=== PATIENT | female | born 1975 | race Caucasian/White ===

== ENCOUNTER 2020-12-28 23:33 | Inpatient (IN) | payer OTHER ==
[~2020-12-28] VITALS: Ht 170.2 cm; Wt 115.8 kg
[2020-12-29 00:36] LABS: BASOPHILS ABSOLUTE AUTO 0.05 K/mm3 (0.00-0.23); BASOPHILS PERCENT AUTO 1 % (0-2); Hematocrit 40.1 % (33.0-51.0); Hemoglobin 12.9 g/dL (11.5-16.0); LYMPHOCYTES ABSOLUTE AUTO 1.37 K/mm3 (0.84-5.20); LYMPHOCYTES PERCENT AUTO 18 % (21-46); MONOCYTES ABSOLUTE AUTO 0.73 K/mm3 (0.16-1.47); MONOCYTES PERCENT AUTO 10 % (4-13); Mean Corpuscular HGB 28.9 pg (26.0-34.0); Mean Corpuscular HGB Conc 32.2 g/dL (31.5-36.5); Mean Corpuscular Volume 90 fL (80-100); Platelet Count 210 K/mm3 (150-400); RDW Coefficient Variation 13.6 % (11.7-14.2); Red Blood Cell Count 4.47 M/mm3 (3.80-5.20); White Blood Cell Count 7.72 K/mm3 (4.00-11.30)
[2020-12-29 00:37] LABS: EOSINOPHILS ABSOLUTE AUTO 0.13 K/mm3 (0.00-0.68); EOSINOPHILS PERCENT AUTO 2 % (0-6); IMMATURE GRAN ABSOLUTE AUTO 0.04 K/mm3 (0.00-0.10); IMMATURE GRAN PERCENT AUTO 1 % (0-1); NEUTROPHILS PERCENT AUTO 70 % (41-73)
[2020-12-29 00:57] LABS: Alanine Aminotransfer (ALT/SGP 110 U/L (12-78); Albumin, Blood 2.2 g/dL (3.4-5.0); Albumin/Globulin Ratio 0.5 (0.8-1.8); Alk Phos 87 U/L (50-136); Anion Gap 6 mmol/L (6-16); Aspartate Aminotrans (AST/SGOT 89 U/L (12-37); Bilirubin, Total 0.4 mg/dL (0.1-1.0); Blood Urea Nitrogen 9 mg/dL (8-24); Bun/Creatinine Ratio 11.2 (12.0-20.0); CO2, Blood 23 mmol/L (21-32); Calcium, Blood 8.7 mg/dL (8.5-10.1); Chloride, Blood 104 mmol/L (98-108); Creatinine, Blood 0.81 mg/dL (0.40-1.00); Globulin, Blood 4.5 g/dL (2.2-4.0); Glomerular Filtration Rate >60 (60-); Glucose, Blood 124 mg/dL (70-99); Potassium, Blood 3.8 mmol/L (3.5-5.5); Sodium, Blood 133 mmol/L (136-145); Total Protein, Blood 6.7 g/dL (6.4-8.2)
[2020-12-29 03:49] LABS: U Amphetamine Screen DETECTED; U Barbituate Screen Not Detected; U Benzodiazapine Screen Not Detected; U Buprenorphine Screen Not Detected; U Cannabinoids Screen DETECTED; U Cocaine Screen Not Detected; U Methadone Screen Not Detected; U Methamphetamine Screen DETECTED; U Opiates Screen DETECTED; U Oxycodone Screen Not Detected; U Phencyclidine Screen Not Detected; U Propoxyphene Screen Not Detected
--- NOTE | 2020-12-29 05:51 | NUR ---
SHIFT SUMMARY: JUVE WAS ADMITTED LAST NIGHT FOR RLE CELLULITIS. SHE WAS IN [facility] BUT DID NOT FEEL SHE WAS GETTING THE PROPER TREATMENT AND WENT AMA. ARRIVED TO THE FLOOR GRUMPY BUT ABLE TO MOVE TO BED INDEPENDENTLY. VERY OUT OF IT SLEEPING THROUGH ASSESSMENT AND HAD TO KEEP WAKING HER UP TO GET ANSWERS WHICH WAS NOT VERY CLEAR. RLE ANGRY RED FROM HER TOES UP TO HER KNEE, OUTLINED WITH MARKER. STATES TO PAINFUL TO EVEN PUT HER LEG DOWN. THERE IS A SMALL OPEN AREA ON THE POSTERIOR OF HER ANKLE BUT WAS UNABLE TO GET A CLEAR ANSWER TO WHAT HAD HAPPENED. UA DID COME BACK POSITIVE FOR OPIODS, METH AND MARIJUANA. IVF STARTED BUT WHEN SHE WENT TO CT IV SITE INFILTRATED. NEW IV IS BEING STARTED AT THIS TIME IN ORDER TO GIVE PAIN MEDS AND ADMINISTER ANIBOTICS. PATIENT STILL VERY OUT OF IT CONTINUES TO FALL ASLEEP DURING TREATMENT AND CONVERSATIONS. CALL LIGHT IN REACH. WILL CONTINUE TO MONITOR.
--- NOTE | 2020-12-29 06:43 | NUR ---
CHARGE DID SEVERAL ATTEMPTS AT IV START WITH NO SUCCESS. POWERGLIDE PLACED IN THE LEFT UPPER ARM. AFTERWARDS THE PATIENT REFUSED FENTANYL I WAS UNABLE TO GIVE IT BECAUSE THE IV WAS INFILTRATED BEFORE. CHARGE SAW WASTE. IVF STARTED.
[2020-12-29 07:06] LABS: BASOPHILS ABSOLUTE AUTO 0.03 K/mm3 (0.00-0.23); BASOPHILS PERCENT AUTO 0 % (0-2); EOSINOPHILS ABSOLUTE AUTO 0.12 K/mm3 (0.00-0.68); EOSINOPHILS PERCENT AUTO 2 % (0-6); Hematocrit 38.4 % (33.0-51.0); IMMATURE GRAN ABSOLUTE AUTO 0.05 K/mm3 (0.00-0.10); IMMATURE GRAN PERCENT AUTO 1 % (0-1); LYMPHOCYTES ABSOLUTE AUTO 1.25 K/mm3 (0.84-5.20); LYMPHOCYTES PERCENT AUTO 16 % (21-46); MONOCYTES ABSOLUTE AUTO 0.85 K/mm3 (0.16-1.47); MONOCYTES PERCENT AUTO 11 % (4-13); Mean Corpuscular HGB 29.4 pg (26.0-34.0); Mean Corpuscular HGB Conc 33.9 g/dL (31.5-36.5); Mean Corpuscular Volume 87 fL (80-100); Mean Platelet Volume 10.1 fL (9.1-12.4); NEUTROPHILS PERCENT AUTO 71 % (41-73); Platelet Count 220 K/mm3 (150-400); RDW Coefficient Variation 13.8 % (11.7-14.2); RDW Standard Deviation 44.1 fL (35.1-46.3); Red Blood Cell Count 4.42 M/mm3 (3.80-5.20)
[2020-12-29 07:23] LABS: Alanine Aminotransfer (ALT/SGP 100 U/L (12-78); Albumin, Blood 2.2 g/dL (3.4-5.0); Albumin/Globulin Ratio 0.5 (0.8-1.8); Alk Phos 81 U/L (50-136); Anion Gap 7 mmol/L (6-16); Aspartate Aminotrans (AST/SGOT 69 U/L (12-37); Bilirubin, Total 0.4 mg/dL (0.1-1.0); Blood Urea Nitrogen 9 mg/dL (8-24); CO2, Blood 25 mmol/L (21-32); CPK Creatine Kinase 39 U/L (26-193); Calcium, Blood 8.9 mg/dL (8.5-10.1); Chloride, Blood 105 mmol/L (98-108); Creatinine, Blood 0.75 mg/dL (0.40-1.00); Globulin, Blood 4.5 g/dL (2.2-4.0); Glomerular Filtration Rate >60 (60-); Glucose, Blood 120 mg/dL (70-99); Potassium, Blood 3.8 mmol/L (3.5-5.5); Sodium, Blood 137 mmol/L (136-145); Total Protein, Blood 6.7 g/dL (6.4-8.2)
--- NOTE | 2020-12-29 07:33 | NUR ---
Bedside report rec'd from DOMENICO Yoo . The pt is lethargic, wakens to verbal/tactile stimuli when blood draw done and is irritable. C/o pain in leg and back at this time, requesting pain medication but refusing fentanyl because "it is too strong." Given her lethargy, questionable safety with any narcotic administration at this time any way. Only prn orders for pain med are tylenol and fentanyl at this time.She appears to quickly go back to sleep.
--- NOTE | 2020-12-29 07:43 | NUR ---
crying on phone with her mom, still refusing pain medication. States it will make her sick.
--- NOTE | 2020-12-29 12:48 | NUR ---
COOL PAD APPLIED TO RIGHT LEG FOR RELIEF OF PAIN. LEG IS ELEVATED ON 2-3 PILLOWS FOR RELIEF AND TO AID IN REDUCING SWELLING. PT IS C/O PAIN 10/10 WHILE EATING LUNCH.
--- NOTE | 2020-12-29 14:12 | NUR ---
Pt appears to be sleeping soundly. Respirations are even, unlabored, she is lying on her left side. Cool application to her right leg was short-lived; pt stated that it was too cool.
--- NOTE | 2020-12-29 15:09 | NUR ---
The pt is wide awake, and has been complaining of severe pain in her right leg. Called Dr. Caballero, new orders received for pain medication.
--- NOTE | 2020-12-29 18:08 | NUR ---
Sleeping since administration of oxycodone; awakened easily at time of administration of ketorolac, stated that she didn't need anything else for pain because she was doing fine. STates that she hesitates to take narcotics because she used to be hooked on pain pills and she doesn't want to be anymore.
--- NOTE | 2020-12-29 20:50 | NUR ---
ASSUMPTION OF CARE. STILL VERY OUT OF IT, SLEEPING ALL THE TIME. WAKES TO VERBAL STIMULI. ASKED FOR DINNER TRAY, GAVE IT TO HER. STATES PAIN 8/10 IN RLE. NO CHANGES TO RLE STILL ANGRY RED, NO EDEMA, SHINNY SWOLLEN, NO DECREASE IN REDNESS. LEG ELEVATED ON PILLOWS. IVF INFUSING AT 75ML/HR TO POWERGLIDE. WILL CONTINUE TO MONITOR, CALL LIGHT IN REACH.
[2020-12-30 05:10] LABS: BASOPHILS ABSOLUTE AUTO 0.03 K/mm3 (0.00-0.23); BASOPHILS PERCENT AUTO 0 % (0-2); EOSINOPHILS ABSOLUTE AUTO 0.15 K/mm3 (0.00-0.68); EOSINOPHILS PERCENT AUTO 2 % (0-6); Hematocrit 36.7 % (33.0-51.0); Hemoglobin 12.3 g/dL (11.5-16.0); IMMATURE GRAN ABSOLUTE AUTO 0.07 K/mm3 (0.00-0.10); IMMATURE GRAN PERCENT AUTO 1 % (0-1); LYMPHOCYTES ABSOLUTE AUTO 2.08 K/mm3 (0.84-5.20); LYMPHOCYTES PERCENT AUTO 28 % (21-46); MONOCYTES ABSOLUTE AUTO 0.74 K/mm3 (0.16-1.47); MONOCYTES PERCENT AUTO 10 % (4-13); Mean Corpuscular HGB Conc 33.5 g/dL (31.5-36.5); Mean Corpuscular Volume 87 fL (80-100); NEUTROPHILS ABSOLUTE AUTO 4.28 K/mm3 (1.96-9.15); NEUTROPHILS PERCENT AUTO 58 % (41-73); Platelet Count 251 K/mm3 (150-400); RDW Coefficient Variation 14.1 % (11.7-14.2); RDW Standard Deviation 44.7 fL (35.1-46.3); Red Blood Cell Count 4.24 M/mm3 (3.80-5.20); White Blood Cell Count 7.35 K/mm3 (4.00-11.30)
[2020-12-30 05:19] LABS: Alanine Aminotransfer (ALT/SGP 78 U/L (12-78); Albumin/Globulin Ratio 0.5 (0.8-1.8); Alk Phos 72 U/L (50-136); Anion Gap 5 mmol/L (6-16); Aspartate Aminotrans (AST/SGOT 28 U/L (12-37); Bilirubin, Total 0.2 mg/dL (0.1-1.0); Blood Urea Nitrogen 13 mg/dL (8-24); Bun/Creatinine Ratio 16.6 (12.0-20.0); CO2, Blood 26 mmol/L (21-32); Calcium, Blood 8.3 mg/dL (8.5-10.1); Chloride, Blood 107 mmol/L (98-108); Creatinine, Blood 0.79 mg/dL (0.40-1.00); Globulin, Blood 4.3 g/dL (2.2-4.0); Glomerular Filtration Rate >60 (60-); Glucose, Blood 109 mg/dL (70-99); Magnesium, Blood 2.1 mg/dL (1.6-2.4); Sodium, Blood 138 mmol/L (136-145); Total Protein, Blood 6.3 g/dL (6.4-8.2)
[2020-12-30 05:26] LABS: Vancomycin, Trough 9.3 ug/mL (5.0-10.0)
--- NOTE | 2020-12-30 05:39 | NUR ---
SHIFT SUMMARY: MORE AWAKE THIS SHIFT THEN PREVIOUS NIGHT. ATE DINNER AND WAS ON HER PHONE FOR A WHILE THEN FELL TO SLEEP. PAIN MED WAS GIVEN X2 AND WILL MEDICATED BEFORE SHIFT IS OVER. STILL NOT WANTING TO PUT HER FOOT DOWN DUE TO INCREASE IN PAIN. SWELLING HAS GONE DOWN SOME AND REDNESS HAS DECREASED BY THREE QUARTERS OF AN INCH BELOW THE MARKED AREA. COLOR IS ALSO GETTING BLOWER INSTALLER. STATES SHE FEELS LIKE SHE CAN MOVE HER TOES A LITTLE EASIER. SHE DOES WELL TO KEEP HER FOOT ELEVATED ON PILLOWS. VSS/AFEBRILE. CALL LIGHT IS IN REACH.
--- NOTE | 2020-12-30 16:54 | NUR ---
SHIFT SUMMARY PATIENT MEDICATED FOR PAIN X2. DENIES NAUSEA AND SHORTNESS OF BREATH. DRESSING APPLIED TO RIGHT LOWER LEG DUE TO WEEPING EDEMA. POWERGLIDE DRESSING CHANGED. PATIENT DECLINES TO GET OUT OF BED DUE TO PAIN IN RLE. BEDPAN USED PER PATIENT REQUEST. EATING AND DRINKING WELL. PLEASANT AND COOPERATIVE WITH CARE.
--- NOTE | 2020-12-30 21:56 | NUR ---
ASSUMPTION OF CARE. PLEASANT AND COOPERATIVE. USED BED CLARK. UN-WRAPPED LEG SHE FELT IT WAS MAKING HOTTER. DECREASE IN REDNESS TO MID CALF. SWELLING DOWN TO 2 SKIN IS GETTING WRINKLES AND IS VERY THIN. ENCOURAGED TO PREVENT RUBBING. NO N/T. MEDICATED FOR PAIN. WILL CONTINUE TO MONITOR. CALL LIGHT IN REACH.
--- NOTE | 2020-12-31 06:33 | NUR ---
SHIFT SUMMARY: RLE DECREASE IN REDNESS. THERE IS A LARGE AREA ON THE POSTERIOR MEDIAL SIDE OF THE CALF WHERE THE TISSUES APPEARS TO BE SIMILAR TO HEMATOMA WITH THE CENTER SKIN VERY THIN LIKE A BLISTER DID FORM AND IS RESOLVING. ON THE LATERAL UP TOWARDS KNEE THERE IS A SIMILAR AREA WITH SOME RAISED AREAS POSSIBLY BLISTERS. PAIN AVERAGE 7/10. DECREASE IN SWELLING, WRINKLES IN TISSUE. ANTIBOTICS INFUSING WELL. VSS/AFEBRILE. CALL LIGHT IN REACH.
--- NOTE | 2020-12-31 16:19 | NUR ---
SHIFT SUMMARY PATIENT MEDICATED FOR PAIN X2. PATIENT DENIES NAUSEA AND VOMITING. PATIENT UP TO BSC ONCE TODAY WITH SBA. BANDAGE ON CALF IS CLEAN, DRY, AND INTACT. EATING AND DRINKING WELL. PLEASANT AND COOPERATIVE WITH CARE.
[2021-01-01 06:08] LABS: BASOPHILS ABSOLUTE AUTO 0.06 K/mm3 (0.00-0.23); BASOPHILS PERCENT AUTO 1 % (0-2); EOSINOPHILS ABSOLUTE AUTO 0.18 K/mm3 (0.00-0.68); EOSINOPHILS PERCENT AUTO 2 % (0-6); Hemoglobin 13.2 g/dL (11.5-16.0); IMMATURE GRAN ABSOLUTE AUTO 0.22 K/mm3 (0.00-0.10); IMMATURE GRAN PERCENT AUTO 2 % (0-1); LYMPHOCYTES ABSOLUTE AUTO 2.77 K/mm3 (0.84-5.20); LYMPHOCYTES PERCENT AUTO 31 % (21-46); MONOCYTES ABSOLUTE AUTO 0.63 K/mm3 (0.16-1.47); MONOCYTES PERCENT AUTO 7 % (4-13); Mean Corpuscular HGB 28.7 pg (26.0-34.0); Mean Corpuscular Volume 87 fL (80-100); Mean Platelet Volume 9.8 fL (9.1-12.4); NEUTROPHILS ABSOLUTE AUTO 5.23 K/mm3 (1.96-9.15); NEUTROPHILS PERCENT AUTO 58 % (41-73); Platelet Count 343 K/mm3 (150-400); RDW Coefficient Variation 13.8 % (11.7-14.2); RDW Standard Deviation 44.4 fL (35.1-46.3); White Blood Cell Count 9.09 K/mm3 (4.00-11.30)
--- NOTE | 2021-01-01 06:12 | NUR ---
SHIFT SUMMARY: VSS/AFEBRILE. SLEPT THE ENTIRE SHIFT, WOULD MOAN WHEN SPOKEN TO BUT WOULD NOT WAKE UP. SHE WOULD ALLOW HER ANTIBOTICS TO HUNG. NEVER WOKE UP TO USE THE BATHROOM TILL THIS AM. SHE GOT UP TO BSC. RLE STILL IMPROVING. THERE IS LARGE HEMOTOMA LIKE AREA WITH BLISTER IN THE CENTER ON THE POSTERIOR OF THE CALF, SKIN IS STILL INTAKE. NO PAIN MEDS GIVEN OTHER THEN TORDOL. STILL NO BM TO NOTE. CALL LIGHT IS IN REACH. AM ANTIBOTIC INFUSING.
[2021-01-01 06:24] LABS: Alanine Aminotransfer (ALT/SGP 53 U/L (12-78); Albumin, Blood 2.2 g/dL (3.4-5.0); Albumin/Globulin Ratio 0.4 (0.8-1.8); Alk Phos 71 U/L (50-136); Anion Gap 4 mmol/L (6-16); Aspartate Aminotrans (AST/SGOT 27 U/L (12-37); Bilirubin, Total 0.2 mg/dL (0.1-1.0); Blood Urea Nitrogen 16 mg/dL (8-24); Bun/Creatinine Ratio 19.7 (12.0-20.0); CO2, Blood 27 mmol/L (21-32); Calcium, Blood 8.8 mg/dL (8.5-10.1); Chloride, Blood 105 mmol/L (98-108); Creatinine, Blood 0.81 mg/dL (0.40-1.00); Globulin, Blood 4.9 g/dL (2.2-4.0); Glomerular Filtration Rate >60 (60-); Glucose, Blood 111 mg/dL (70-99); Potassium, Blood 4.3 mmol/L (3.5-5.5); Sodium, Blood 136 mmol/L (136-145); Total Protein, Blood 7.1 g/dL (6.4-8.2)
--- NOTE | 2021-01-01 16:45 | NUR ---
PT HAS BEEN QUITE PLEASNT TODAY. PAIN MANAGED WITH AVAIL MEDS. PT STATES LEG SLIGHTLY LARGER THAN YEST. REDNESS IS STILL DECREASING FROM LINES DRAWN ON LEG. IV ANTIBIOTICS ORDERED. NO NEW CONCERNS NOTED TODAY. BED IN LOW POSITION, CALL LITE IN REACH, CALLS APPROP
--- NOTE | 2021-01-01 22:00 | NUR ---
ASSUMPTION OF CARE. RLE DOING BETTER, REDNESS CONTINUES TO DECREASE. HEMATOMA AREA ON POSTERIOR LEG BLISTER OPENED UP. DRESSING CDI. SWELLING STILL DOWN. PAIN 02/20. ADMINISTERED PAIN MEDS. NO OTHER CHANGES TODAY. CALL LIGHT IN REACH.
--- NOTE | 2021-01-02 04:49 | NUR ---
SHIFT SUMMARY: AOX3, SLEPT MOST OF SHIFT. ONLY 1 PAIN MED GIVEN. DRESSING TO RLE INTACT AND CLEAN. REDNESS DECREASING, SWELLING +1 NON-PITTING. SKIN THIN AND WRINKLED. TENDER TO TOUCH. VSS/AFEBRILE. NO OTHER CHANGES TO NOTE. CALL LIGHT IS IN REACH AND USED APPROPRIATLY.
[2021-01-02 05:48] LABS: BASOPHILS ABSOLUTE AUTO 0.06 K/mm3 (0.00-0.23); BASOPHILS PERCENT AUTO 1 % (0-2); EOSINOPHILS ABSOLUTE AUTO 0.17 K/mm3 (0.00-0.68); EOSINOPHILS PERCENT AUTO 2 % (0-6); Hematocrit 38.7 % (33.0-51.0); Hemoglobin 12.8 g/dL (11.5-16.0); IMMATURE GRAN ABSOLUTE AUTO 0.26 K/mm3 (0.00-0.10); IMMATURE GRAN PERCENT AUTO 3 % (0-1); LYMPHOCYTES ABSOLUTE AUTO 2.79 K/mm3 (0.84-5.20); LYMPHOCYTES PERCENT AUTO 28 % (21-46); MONOCYTES ABSOLUTE AUTO 0.65 K/mm3 (0.16-1.47); MONOCYTES PERCENT AUTO 7 % (4-13); Mean Corpuscular HGB 28.4 pg (26.0-34.0); Mean Corpuscular HGB Conc 33.1 g/dL (31.5-36.5); Mean Corpuscular Volume 86 fL (80-100); Mean Platelet Volume 9.6 fL (9.1-12.4); NEUTROPHILS ABSOLUTE AUTO 6.11 K/mm3 (1.96-9.15); NEUTROPHILS PERCENT AUTO 61 % (41-73); Platelet Count 376 K/mm3 (150-400); RDW Coefficient Variation 13.5 % (11.7-14.2); RDW Standard Deviation 42.5 fL (35.1-46.3); White Blood Cell Count 10.04 K/mm3 (4.00-11.30)
[2021-01-02 06:17] LABS: Alanine Aminotransfer (ALT/SGP 43 U/L (12-78); Albumin, Blood 2.2 g/dL (3.4-5.0); Albumin/Globulin Ratio 0.5 (0.8-1.8); Alk Phos 64 U/L (50-136); Anion Gap 5 mmol/L (6-16); Aspartate Aminotrans (AST/SGOT 17 U/L (12-37); Bilirubin, Total 0.2 mg/dL (0.1-1.0); Blood Urea Nitrogen 15 mg/dL (8-24); Bun/Creatinine Ratio 17.9 (12.0-20.0); CO2, Blood 26 mmol/L (21-32); Calcium, Blood 8.6 mg/dL (8.5-10.1); Chloride, Blood 106 mmol/L (98-108); Creatinine, Blood 0.84 mg/dL (0.40-1.00); Globulin, Blood 4.6 g/dL (2.2-4.0); Glomerular Filtration Rate >60 (60-); Glucose, Blood 97 mg/dL (70-99); Potassium, Blood 4.1 mmol/L (3.5-5.5); Sodium, Blood 137 mmol/L (136-145); Total Protein, Blood 6.8 g/dL (6.4-8.2)
--- NOTE | 2021-01-02 18:19 | NUR ---
PT DOING WELL TODAY. STATES THINKS LEG MAYBE SOME WORSE TONITE. LITTLE MORE PAIN TONITE. MEDICATED. DID REQUEST TO HAVE LOW/NO SALT DIET. NO NEW CONCRNS NOTED TODAY. BED IN LOW POSITION, CALL LITE IN REACH, CALLS APPROP
--- NOTE | 2021-01-02 18:42 | NUR ---
BP 162/86 PT STATES FAMILY DRAMA ON PHONE. WILL WILL BE OKAY.
[2021-01-03 05:38] LABS: Anion Gap 5 mmol/L (6-16); Blood Urea Nitrogen 11 mg/dL (8-24); Bun/Creatinine Ratio 13.1 (12.0-20.0); CO2, Blood 26 mmol/L (21-32); Calcium, Blood 8.7 mg/dL (8.5-10.1); Chloride, Blood 106 mmol/L (98-108); Creatinine, Blood 0.84 mg/dL (0.40-1.00); Glomerular Filtration Rate >60 (60-); Glucose, Blood 103 mg/dL (70-99); Potassium, Blood 4.2 mmol/L (3.5-5.5); Sodium, Blood 137 mmol/L (136-145)
--- NOTE | 2021-01-03 06:39 | NUR ---
SHIFT SUMMARY: JUVE IS A&OX4. VSS, NO ACUTE EVENTS OVERNIGHT. SHE IS A ONE PERSON STANDBY ASSIST TO THE BATHROOM, GOOD URINE OUTPUT. SHE REPORTS ADEQUATE PAIN CONTROL WITH THE TORADOL AND OXY. SHE USES THE CALL LIGHT APPROPRIATELY. SHE IS TOLERATING PO INTAKE WELL. SHE REPORTS THAT THE SWELLING IN HER RIGHT FOOT IS "GONE", STATING THAT IT IS SO MUCH SMALLER THAN USUAL SHE FEELS THAT IT IS BACK TO NORMAL, ALTHOUGH THERE CONTINUES TO BE EDEMA. POWERGLIDE PATENT. SHE IS LYING IN BED WITH THE CALL LIGHT IN REACH. WILL REPORT TO DAY SHIFT RN.
--- NOTE | 2021-01-03 18:23 | NUR ---
SHIFT SUMMARY JUVE COMPLAINED OF MILD PAIN FOR WHICH TYLENOL WORKED WELL. WALKED AROUND THE HALLWAY WITH SBA. INDEP IN ROOM TO BATHROOM. LLE ELEVATED ON PILLOWS WHEN PT IN BED. DAUGHTER VISITED. CALL LIGHT IN REACH, [facility]
--- NOTE | 2021-01-04 05:11 | NUR ---
SHIFT SUMMARY: NO ACUTE CHANGES, VSS, PAIN WELL CONTROLED WITH PRN MEDS PER OCT. VOIDING CLEAR YELLOW URINE. NO BLOOD DRAW FROM [employer].
--- NOTE | 2021-01-04 12:43 | NUR ---
PATIENT IS ALERT AND ORIENTED AND COOPERATIVE WITH CARE. MEDICATED PER EMAR FOR PAIN DURING CLUB ATTENDANT, NO C/O PAIN THIS SHIFT. PATIENT IS INDEPENDENT IN HER ROOM. SHE WALKED IN THE HALLS WITH A FWW INDEPENDENTLY. VSS. WILL CONTINUE TO MONITOR
--- NOTE | 2021-01-04 17:31 | NUR ---
PATIENT IS ALERT AND ORIENTED AND COOPERATIVE WITH CARE. PATIENT SHOWERED THIS AFTERNOON. DRESSING CHANGED NEEDED TODAY. PATIENT TOOK A WALK IN THE HALLWAY THIS MORNING. SHE MAKES HER NEEDS KNOWN. WILL CONTINUE TO MONITOR
--- NOTE | 2021-01-05 00:05 | NUR ---
REPORT RECIEVED FROM MAGGIE MYERS AND ASSUMED CARE OF PT AT THIS TIME. THIS RN AGREES TO MAGGIE'S ASSESSMENT FINDINGS.
--- NOTE | 2021-01-05 00:20 | NUR ---
TRANSFER OF CARE: @ 2523 PATIENT REQUESTED A DIFFERENT NURSE. " I DON'T FEEL SAFE WITH YOU TAKING CARE OF ME". PATIENT BECAME AGREE AND PARANOID AFTER POWER GLIDE WAS FLUSHED AND BLOOD RETURN CHECKED. "YOU ARE THE FIRST NURSE WHO HAS FLUSHE THAT IV". SOFTWARE ENGINEERING ASSOCIATE MANAGER TOOK CARE OF PATIENT THE PREVIOUS NIGHT AND POWER GLIDE WAS FLUSHED MULTIPLE TIMES TO ADMINITER IV ANTIBIOTICS. CHARGE NURSE SAGE RODRIGUEZ RN IS CALLED TO THE ROOM TO SPEAK WITH PATIENT ABOUT HER CONCERNS. REPORT IS GIVEN TO NEW RN AND CARE OF PATIENT IS TRANSFERED.
--- NOTE | 2021-01-05 06:18 | NUR ---
SUMMARY: PT A/OX4, INDEPENDENT IN ROOM AND CALLS APPROPRIATELY TO SPECIFY NEEDS. SHE IS MOSTLY PLEASANT AND COOPERATIVE W/CARE BUT THIS RN ASSUMED CARE MIDWAY THROUGH SHIFT UPON PT'S REQUEST TO HAVE NEW NURSE. PT OBSERVED TO HAVE CONCRETE, PARANOID AND CONTANKEROUS THINKING AT TIMES. JEANINE WRAP REMAINS INTACT TO RLE AND PT UNWRAPPED IT AD ALICIA TO APPLY LOTION. LYMPHODEMA PERSISTS TO RLE W/OPEN BLISTER COVERED W/NONADHERENT DX. SWELLING AND DISCOLORATION OBSERVED TO BLE'S THOUGH RLE IS WORSE. KANE PG SL BETWEEN ABX. NO ACUTE CHANGES, VSS AND AFEBRILE. WCTM AND REPORT TO DAY RN.
[2021-01-05 06:28] LABS: Hemoglobin 13.8 g/dL (11.5-16.0); Mean Corpuscular HGB 28.9 pg (26.0-34.0); Mean Corpuscular HGB Conc 32.9 g/dL (31.5-36.5); Mean Corpuscular Volume 88 fL (80-100); Mean Platelet Volume 9.3 fL (9.1-12.4); Platelet Count 412 K/mm3 (150-400); RDW Coefficient Variation 13.3 % (11.7-14.2); RDW Standard Deviation 43.1 fL (35.1-46.3); Red Blood Cell Count 4.77 M/mm3 (3.80-5.20); White Blood Cell Count 6.74 K/mm3 (4.00-11.30)
[2021-01-05 06:44] LABS: Anion Gap 5 mmol/L (6-16); Blood Urea Nitrogen 10 mg/dL (8-24); Bun/Creatinine Ratio 11.4 (12.0-20.0); CO2, Blood 25 mmol/L (21-32); Calcium, Blood 8.6 mg/dL (8.5-10.1); Chloride, Blood 106 mmol/L (98-108); Creatinine, Blood 0.88 mg/dL (0.40-1.00); Glomerular Filtration Rate >60 (60-); Glucose, Blood 160 mg/dL (70-99); Potassium, Blood 3.7 mmol/L (3.5-5.5); Sodium, Blood 136 mmol/L (136-145)
--- NOTE | 2021-01-05 17:07 | NUR ---
PT AOX4 AND COOPERATIVE OF CARE. PT INDEPENDENT TO RESTROOM AND CALL APPROPRIATELY. PT DENIES PAIN AT THIS TIME. REWRAPPED L LEG WITH JEANNIE BANDAGE. CALL LIGHT IS WITHIN REACH WILL CONTINUE TO MONITOR. NO DISTRESS NOTED.
--- NOTE | 2021-01-05 18:29 | NUR ---
PT GAVE THIS STUDENT NURSE PERMISSION TO PROVIDE CARE ON 01/05/21.
--- NOTE | 2021-01-06 04:12 | NUR ---
SHIFT SUMMARY PT PLEASANT&COOPERATIVE TO CARE T/O THIS SHIFT. TALKATIVE; DISCOLOSED CHILDHOOD TRAUMA & INNEFECTIVE COPING SKILLS (CUTTING @ AGE 15). PT SHOWERED INDEPENDENTLY. WOUND TO R CALF REDRESSED AFTER SHOWER WITH NON-ADHERENT DRESSING & GAUZE. PT WALKED INDEPENDENTLY IN HALLWAY IN THE NIGHT PROBABLE D/C HOME TOMORROW PER PROVIDER. NO ACUTE CHANGES THIS SHIFT. BED IN LOWET POSTIION & CALL LIGHT WITHIN REACH. WILL CONTINUE TO MONITOR.
--- NOTE | 2021-01-06 05:52 | NUR ---
PT REPORTS STARTING HER MENSES.
[2021-01-06] MEDS ORDERED: IBUP600 PO (09:27)
[2021-01-06] MEDS ORDERED: CEPH500 PO (09:27)
--- NOTE | 2021-01-06 14:13 | NUR ---
PT DISCHARGED AT 1215 VIA WHEELCHAIR. ALL PAPERWORK WAS REVIEWED AND EDUCATIONAL MATERIAL SENT WITH PT. PT HAD 1200 ANTIBOTIC GIVEN EARLIER TO BE ABLE TO DISCHARGE SOONER PER DR ESCALERA. NO DISTRESS NOTED AND PT DENIED PAIN. WOUND ON L LEG REWRAPPED PRIOR TO DISCHARGE. PT ESCORTED OUT BY VOLUNTEER IN WHEELCHAIR. ALL PERSONAL BELONGINGS COLLECTED AND TAKEN WITH PT.
--- NOTE | 2021-01-06 19:29 | NUR ---
LATE ENTRY 01/06/21 6817 I AGREE WITH ASSESSMENTS AND CHARTING OF STUDENT RN, ABHIJIT MARIE
== END 2021-01-06 12:12 | disposition home or self-care (01) | DRG 603 ==
LOC: ER 23:33 → MEDS 12-29 01:50
PROVIDERS: Internal Medicine; Student in an Organized Health Care Education/Training Program; ADMIT Internal Medicine
DX: L03.115 Cellulitis of right lower limb (principal); I87.8 Other specified disorders of veins; L03.116 Cellulitis of left lower limb; F15.10 Other stimulant abuse, uncomplicated; Z88.1 Allergy status to other antibiotic agents; Z88.5 Allergy status to narcotic agent; Z88.8 Allergy status to other drugs, medicaments and biological substances; I89.0 Lymphedema, not elsewhere classified; J45.909 Unspecified asthma, uncomplicated; G62.9 Polyneuropathy, unspecified; Z98.51 Tubal ligation status; Z98.890 Other specified postprocedural states; Z79.899 Other long term (current) drug therapy
CPT/HCPCS: 36415; 73701; 80048; 80053; 80202; 82550; 83605; 83735; 85025; 85027; 85651; 87040; 99284; A9270; J0295; J1650; J1885; J3010; J3370; J7030; J7040; J7050; Q9967

== ENCOUNTER 2021-10-22 16:14 | Emergency (ER) | payer OTHER ==
[~2021-10-22] VITALS: Ht 167.6 cm; Wt 113.4 kg
[~2021-10-22 16:14] MED LIST: CEPH500 PO; IBUP600 PO
== END 2021-10-22 17:00 | disposition home or self-care (01) ==
LOC: ER 16:14
DX: I89.0 Lymphedema, not elsewhere classified (principal); J45.909 Unspecified asthma, uncomplicated; G62.9 Polyneuropathy, unspecified; Z88.5 Allergy status to narcotic agent; Z88.1 Allergy status to other antibiotic agents; Z88.8 Allergy status to other drugs, medicaments and biological substances; Z79.899 Other long term (current) drug therapy
CPT/HCPCS: 10160; 99282-25

== ENCOUNTER 2021-10-28 21:17 | Inpatient (IN) | payer OTHER ==
[~2021-10-28] VITALS: Ht 170.2 cm; Wt 113.4 kg
[2021-10-28] MEDS ORDERED: SULFAMETHOXAZO1 EAC1 PO (21:50)
[2021-10-28] MEDS ORDERED: METOPROLOL TART25 MG PO (21:50)
[2021-10-28] MEDS ORDERED: HYDCHL25 PO (21:50)
[2021-10-28 23:31] LABS: BASOPHILS ABSOLUTE AUTO 0.04 K/mm3 (0.00-0.23); BASOPHILS PERCENT AUTO 1 % (0-2); EOSINOPHILS ABSOLUTE AUTO 0.16 K/mm3 (0.00-0.68); EOSINOPHILS PERCENT AUTO 2 % (0-6); Hematocrit 42.5 % (33.0-51.0); Hemoglobin 13.9 g/dL (11.5-16.0); IMMATURE GRAN ABSOLUTE AUTO 0.02 K/mm3 (0.00-0.10); IMMATURE GRAN PERCENT AUTO 0 % (0-1); LYMPHOCYTES ABSOLUTE AUTO 2.89 K/mm3 (0.84-5.20); LYMPHOCYTES PERCENT AUTO 38 % (21-46); MONOCYTES ABSOLUTE AUTO 0.42 K/mm3 (0.16-1.47); MONOCYTES PERCENT AUTO 6 % (4-13); Mean Corpuscular HGB 28.6 pg (26.0-34.0); Mean Corpuscular HGB Conc 32.7 g/dL (31.5-36.5); Mean Corpuscular Volume 87 fL (80-100); Mean Platelet Volume 10.5 fL (9.1-12.4); NEUTROPHILS ABSOLUTE AUTO 4.01 K/mm3 (1.96-9.15); NEUTROPHILS PERCENT AUTO 53 % (41-73); Platelet Count 316 K/mm3 (150-400); RDW Coefficient Variation 14.3 % (11.7-14.2); RDW Standard Deviation 45.9 fL (35.1-46.3); Red Blood Cell Count 4.86 M/mm3 (3.80-5.20); White Blood Cell Count 7.54 K/mm3 (4.00-11.30)
[2021-10-28 23:47] LABS: Albumin, Blood 3.3 g/dL (3.4-5.0); Albumin/Globulin Ratio 0.8 (0.8-1.8); Bilirubin, Total 0.3 mg/dL (0.1-1.0); Bun/Creatinine Ratio 14.6 (12.0-20.0); Calcium, Blood 8.7 mg/dL (8.5-10.1); Creatinine, Blood 1.03 mg/dL (0.40-1.00); Globulin, Blood 4.3 g/dL (2.2-4.0); Potassium, Blood 3.9 mmol/L (3.5-5.5); Total Protein, Blood 7.6 g/dL (6.4-8.2)
[2021-10-29] MEDS ORDERED: CLIN300 PO ×2 (00:03→17:09)
[2021-10-29 02:58] LABS: BASOPHILS ABSOLUTE AUTO 0.06 K/mm3 (0.00-0.23); BASOPHILS PERCENT AUTO 1 % (0-2); EOSINOPHILS PERCENT AUTO 3 % (0-6); Hematocrit 37.6 % (33.0-51.0); Hemoglobin 12.1 g/dL (11.5-16.0); IMMATURE GRAN ABSOLUTE AUTO 0.01 K/mm3 (0.00-0.10); IMMATURE GRAN PERCENT AUTO 0 % (0-1); LYMPHOCYTES ABSOLUTE AUTO 3.13 K/mm3 (0.84-5.20); LYMPHOCYTES PERCENT AUTO 45 % (21-46); MONOCYTES ABSOLUTE AUTO 0.63 K/mm3 (0.16-1.47); MONOCYTES PERCENT AUTO 9 % (4-13); Mean Corpuscular HGB 28.1 pg (26.0-34.0); Mean Corpuscular HGB Conc 32.2 g/dL (31.5-36.5); Mean Corpuscular Volume 87 fL (80-100); Mean Platelet Volume 9.5 fL (9.1-12.4); NEUTROPHILS PERCENT AUTO 42 % (41-73); Platelet Count 273 K/mm3 (150-400); RDW Coefficient Variation 14.5 % (11.7-14.2); RDW Standard Deviation 46.7 fL (35.1-46.3); Red Blood Cell Count 4.31 M/mm3 (3.80-5.20); White Blood Cell Count 6.93 K/mm3 (4.00-11.30)
[2021-10-29 03:45] LABS: Alanine Aminotransfer (ALT/SGP 42 U/L (12-78); Albumin, Blood 2.8 g/dL (3.4-5.0); Albumin/Globulin Ratio 0.8 (0.8-1.8); Alk Phos 68 U/L (50-136); Anion Gap 7 mmol/L (6-16); Aspartate Aminotrans (AST/SGOT 25 U/L (12-37); Bilirubin, Total 0.1 mg/dL (0.1-1.0); Blood Urea Nitrogen 14 mg/dL (8-24); CO2, Blood 27 mmol/L (21-32); Calcium, Blood 8.3 mg/dL (8.5-10.1); Chloride, Blood 106 mmol/L (98-108); Globulin, Blood 3.7 g/dL (2.2-4.0); Glomerular Filtration Rate >60 (60-); Glucose, Blood 137 mg/dL (70-99); Potassium, Blood 3.3 mmol/L (3.5-5.5); Sodium, Blood 140 mmol/L (136-145); Total Protein, Blood 6.5 g/dL (6.4-8.2)
--- NOTE | 2021-10-29 05:28 | NUR ---
PICKING MACHINE OPERATOR SUMMARY PATIENT WAS BROUGHT FROM THE ED. ALERT AND ORIENTED, ASSESSMENT DONE AND DOCUMENTED. SHE WAS DROWSY BUT EASILY AWAKEN. SKIN ASSESSMENT DONE, SHE DOES NOT HAVE ANY PRESSURE WOUND. SHE HAD BLE CELLULITIS, WITH THE LT SIDE OPEN TO LIKE A BLISTER. NO COMPLAINTS LODGED. WILL CONTINUE TO MONITOR HER.
[2021-10-29 12:59] LABS: Source, Urine Clean Catch
[2021-10-29 13:39] LABS: U Amphetamine Screen DETECTED; U Barbituate Screen Not Detected; U Benzodiazapine Screen DETECTED; U Buprenorphine Screen Not Detected; U Cannabinoids Screen DETECTED; U Cocaine Screen Not Detected; U Methadone Screen Not Detected; U Methamphetamine Screen DETECTED; U Opiates Screen Not Detected; U Oxycodone Screen Not Detected; U Phencyclidine Screen Not Detected; U Propoxyphene Screen Not Detected
[2021-10-29 14:07] LABS: Bilirubin, Urine Neg (Neg); Blood, Urine Neg (Neg); Glucose Qualitative, Urine Neg (Neg); Ketones, Urine Neg (Neg); Leukocyte Esterase, Urine Neg (Neg); Nitrite, Urine Neg (Neg); Protein, Urine Neg (Neg); Specific Gravity, Urine 1.015 (1.003-1.022); Urobilinogen, Urine NORM (Normal)
[2021-10-29 14:09] LABS: Appearance, Urine Clear (Clear); Color, Urine Pale Yellow (P-Yellow)
[2021-10-29] MEDS ORDERED: VISBIOME 112.51 EACH PO (17:08)
== END 2021-10-29 18:42 | disposition home or self-care (01) | DRG 300 ==
LOC: ER 21:17 → MEDS 10-29 01:10 → ER 10-29 02:25 → MEDS 10-29 02:41 → ENPENDDIS 10-29 15:46 → MEDS 10-29 18:42
PROVIDERS: Physician Assistant; ADMIT Internal Medicine
DX: I87.2 Venous insufficiency (chronic) (peripheral) (principal); E87.2 Acidosis; E87.6 Hypokalemia; R00.0 Tachycardia, unspecified; I89.0 Lymphedema, not elsewhere classified; R73.9 Hyperglycemia, unspecified; F15.90 Other stimulant use, unspecified, uncomplicated; J45.909 Unspecified asthma, uncomplicated; G62.9 Polyneuropathy, unspecified; Z88.5 Allergy status to narcotic agent; Z88.1 Allergy status to other antibiotic agents; Z28.21 Immunization not carried out because of patient refusal; Z88.8 Allergy status to other drugs, medicaments and biological substances; Z79.899 Other long term (current) drug therapy; Z98.51 Tubal ligation status; Z98.890 Other specified postprocedural states
CPT/HCPCS: 36415; 80053; 81003; 83036; 83605; 85025; 93306; 96365; 99284; A9270; J1650; J7030